=== PATIENT | female | born 1990 | race Two or more races ===

== ENCOUNTER 2021-06-25 00:18 | Emergency (ER) | payer OTHER ==
[~2021-06-25] VITALS: Ht 165.1 cm; Wt 56.7 kg
[2021-06-25] MEDS ORDERED: TYLENOL (00:42)
[2021-06-25] MEDS ORDERED: CEPHALEXIN500 M1 PO (04:05)
[2021-06-25] MEDS ORDERED: PYRIDIUM DS200 MG PO (04:05)
== END 2021-06-25 04:09 ==
LOC: ER 00:18
DX: N39.0 Urinary tract infection, site not specified (principal)